=== PATIENT | male | born 1975 | race Hispanic/Latino ===

== ENCOUNTER 2022-05-24 00:55 | Day surgery (SDC) | payer BC, SELFPAY ==
[2022-05-16 09:12] VITALS: BMI 27.4
--- NOTE | 2022-05-16 09:15 | PC.NURSE ---
Report to the Outpatient Waiting Room, entrance under the green pavilion located off [facility], at time 0800 on date 05/24/22. Planned Procedure Time: 1000. Time changes happen often and if your time is changed the preop area will call you the afternoon before. - You and your visitor will be asked to self-screen and do not enter if you have any COVID symptoms. - Only one visitor is requested with a max of two and NO children visitors are allowed at this time. - The patient visitor may be requested to leave or wait in car when not with patient due to distancing restrictions. - A mask is optional within the hospital at this time. Patients may have clear liquids (water, carbonated beverages, clear teas, apple juice) until 3 hours prior to surgery with a maximum of 20 ounces. - No food from midnight until time of surgery Take the following medications with a SIP of water the morning of surgery: N/A DO NOT STOP ANY OF YOUR OTHER PRESCRIPTION MEDICATIONS PRIOR TO SURGERY EXCEPT THE FOLLOWING Medications to discontinue per physician: N/A Date to take last dose: N/A Please no make-up, nail bahamian, hairspray, perfume, deodorant, or body powder the day of surgery. No jewelry (including any body piercings) or valuables the day of surgery, leave them at home. Please take a shower or bath the night before, or the morning of, surgery with an antibacterial soap. Wear comfortable, loose fitting clothing. - Jewelry must be removed prior to entering the operating room. Rings and piercings that are not removed may be cut off. - The hospital will not accept responsibility for valuables. - Please leave all valuables, including medications, at home the day of surgery. If you are going home after surgery, a licensed power screwdriver operator must drive you home. - NO public transportation without another adult if you receive anesthesia. - We recommend that an adult stay with you for 24 hours following discharge. - We also recommend that you do not drive, make important decision, drink alcoholic beverages, or take any drugs that were not prescribed by your health care provider for at least 24 hours after your discharge time. Follow any additional instructions given to you from your surgeon. If you or anyone in your household have experienced Covid symptoms in the past week, please notify your surgeon or the nurse liaison at the phone number below for possible testing. Telephone instructions given to PT - CRISPIN PETERSON and asked if any additional questions and then verbalized understanding. Patient advised to call surgeon office or pre surgery nurse liaison [phone] if any additional questions.
--- NOTE | ~2022-05-24 | XR_ITS ---
XR surgery orthopedic DATE: 05/24/2022 11:00 INDICATION: Removal of left foot osteophyte TECHNIQUE: 2 spot C-arm images of the foot 1. Second total exposure time 0.1259 cGycm2 total DAP COMPARISON: None FINDINGS: Status post arthrodesis at the first tarsometatarsal joint. Bone detail is limited. IMPRESSION: Status post arthrodesis at first tarsometatarsal joint Reviewed, dictated and finalized at Location [facility]. Reviewed, dictated and finalized at location B.
--- NOTE | 2022-05-24 07:10 | WPDHPUPDATE1 ---
History and Physical Update Update Date/Time: 05/24/22 07:10 History and Physical has been reviewed, including an updated exam of the patient. There are NO changes in the patient's condition. Risks, benefits, and alternatives have been discussed and questions answered. Patient agrees to proceed with procedure.
--- NOTE | 2022-05-24 08:24 | P.PNAN_ITS ---
Anes - Initial Pre Proc Eval Procedure: Operation Date: 05/24/22 10:00 Proposed Procedures p Removal of Osteophyte Left Foot - Luis Rosales JR, MD Date/Time: 05/24/22 08:24 Surgeon: Luis Rosales JR, MD Pre Op Diagnosis: Osteophyte Left Foot Patient Data Age: 47 Gender: M Height: 1.63 m Weight: 72.6 kg Allergies Allergy/AdvReac Type Severity Reaction Status Date / Time No Known Allergies Allergy Verified 05/16/22 09:11 Home Medications Medication Instructions Recorded Confirmed Type No Home Medications 01/12/19 05/16/22 History Patient hx anesthesia problems: none Family hx anesthesia problems: none Results Review: All pre-operative results and documents have been reviewed as part of the pre- operative evaluation. PMFSH Past Medical History Medical History (Updated 05/24/22 @ 08:25 by César Fisher MD) Hyperlipidemia Overweight Surgical History Surgical History (Updated 05/24/22 @ 08:25 by César Fisher MD) History of foot surgery Social History Social History Smoking status: Never smoker Alcohol intake: current Drinks per week: 6 Substance use: never Substance use type: does not use Living arrangements: with family Spiritual care concerns: No Anes - Eval Final PreProcedure Day of Procedure 05/24/22 08:24 Patient weight: overweight Heart: regular rate and rhythm Lungs: clear to auscultation Airway: Mallampati scale class 1 Neurological: alert and oriented Last oral intake: >/= 8 hours ASA classification: II Emergent: no Anesthetic plan: proceed Anesthesia type and monitoring: general GIVS and standard monitoring Results Review: All pre-operative results and documents have been reviewed as part of the pre- operative evaluation. Informed Consent: The patient's anesthetic plan and its attendant risks and benefits were discussed with the patient/family/POA. Questions were solicited and answers provided to the satisfaction of the patient/family/POA.
[2022-05-24] MEDS: LACTATED RINGERS 1,000 ML 30 ML IV CONT (09:00)
[2022-05-24] MEDS: ceFAZolin 2 GM/D5W 50 ML 2 GM/50 ML BAG IVPB (10:13)
[2022-05-24 10:18] VITALS: BP 125/84; PULSE 69; RESP 14; O2SAT 100
[2022-05-24] MEDS: LIDOCAINE HCL 2% PF INJ 5 ML VIAL 20 ML INFILTRATE (10:42)
--- NOTE | 2022-05-24 11:03 | W.PM.PROC2 ---
Procedure Note - Detailed Date of Procedure 05/24/22 Pre-op Diagnosis Osteophyte Left Foot Post-op Diagnosis Other (1. Osteophyte left foot 2. Ganglion cyst left foot) Procedure Performed 1. Removal of osteophyte left foot 2. Excision of ganglion cyst left foot Surgeon Luis Rosales JR, DPM Anesthesia MAC and Local Indications Painful left foot dorsal midfoot Findings 1. Ganglion cyst along the dorsal midfoot superficial to the extensory hallucis longus tendon. 2. Large Osteophyte along the dorsal lateral aspect of the arthrodesis site to the first metatarsal cuneiform joint. Description of Procedure Under mild sedation, the patient was brought to the operating room, placed on the operating table in the supine position. A pneumatic ankle tourniquet was placed about the patient's left ankle. Following IV sedation, I administered an ankle ring block left with 20ccs of 2% Lidocaine plain and 0.5% Marcaine plain. The foot was then scrubbed, prepped, and draped in the usual aseptic manner. An Esmarch bandage was then used to examine the patient's left foot and pneumatic ankle tourniquet was then inflated. Surgery began in the following manner. Attention was directed to the dorsal aspect of the 1st metatarsocuneiform to the left foot where fluoroscopy was used to identify the joint. A 3 cm incision was made overlying the dorsal aspect of the 1st metatarsocuneiform joint of the left foot just dorsal to the extensor hallucis longus tendon. The incision was then continued deep down through the subcutaneous tissues using sharp and blunt dissections. All bleeders were ligated and cauterized as necessary. At this point, the extensor tendon was identified and reflected laterally, there was a thick walled ganglion cyst overlying the tendon this was excised in entirety. Next, the periosteum and capsular incision was made at the full length of the skin incision exposing the dorsal lateral aspect of the first metatarsal medial cuneiform as well as the base of the 1st metatarsal. Care was taken to retact the neurovascular bundle laterally. Next, an osteotome was used to resect the large promiment osteophyte. I used a none rasp to smooth any rough edges. I flushed the area with copious amounts of sterile saline. Next, the capusule was reaproximated with 4-0 Vicryl. Next, the subcutaneous structures were reapproximated and coapted utilizing 4-0 Vicryl. Next, the skin was reapproximated and coapted utilizing 4-0 Monocryl in running subcuticular suture fashion technique. Upon completion of the procedure, the incision was dressed with Steri-Strips, Adaptic, 4 x 4's, Kerlix, and Coban. The pneumatic ankle tourniquet was then deflated and a prompt hyperemic response noted to all digits of the left foot. The patient did very well with the procedure and the anesthesia. The patient was transferred to the recovery room with vital signs stable and vascular status intact to all toes of the left foot. Following a period of postoperative monitoring, the patient will be discharged home on the following written and oral postoperative instructions: 1. Keep the dressing clean, dry, and intact. Use a cast protector bag with showers. 2. The patient to be protected weight bearing with a CAM boot. 3. The patient should ice and elevate the left foot when at rest. 4. The patient to contact Dr. Rosales for all postop care and if any problems arise. 5. Prescriptions were written for Percocet 5/325 dispensed 40 to be taken 1 p.o. q.4 to 6 hours as needed for severe pain. Estimated Blood Loss 1 Drains No Packing No Pathology None sent Complications No immediate complications Condition Stable Disposition Same day
[2022-05-24 11:10] VITALS: BP 119/88; PULSE 77; RESP 14; O2SAT 100
[2022-05-24] MEDS: ONDANSETRON INJ 4 MG/2 ML VIAL IV PUSH (11:21)
[2022-05-24 11:40] VITALS: BP 119/79; PULSE 57; RESP 16; O2SAT 99
[2022-05-24 12:10] VITALS: BP 140/89; PULSE 55; RESP 16; O2SAT 100
[2022-05-24 12:40] VITALS: BP 122/84; PULSE 50; RESP 17
== END 2022-05-24 13:00 | disposition home or self-care (01) ==
PROVIDERS: PCP Internal Medicine; Visit Provider Podiatrist Foot & Ankle Surgery
PROC: (CPT 28090; principal; 2022-05-24 10:00)
DX: M25.775 Osteophyte, left foot (principal); M67.472 Ganglion, left ankle and foot
CPT/HCPCS: 28090; 28104; 99199; J0690; J1100; J2250; J2405; J2704; J3010; J7120

== ENCOUNTER 2022-08-05 12:55 | Observation (INO) | payer BC, SELFPAY ==
[2022-08-05] VITALS (35 sets, daily range): BP systolic 104–156; BP diastolic 71–108; PULSE 56–82; RESP 12–21; TEMP 36.1–36.7; O2SAT 83–100; BMI 28.3
--- NOTE | ~2022-08-05 | US_ITS ---
EXAMINATION: US carotid duplex BI DATE: 08/05/2022 23:32 INDICATION: Syncope. TECHNIQUE: Grayscale, color Doppler, and pulsed Doppler images of the cervical carotid arteries were obtained. The degree of vessel stenosis is placed in one of the following categories: normal, <50%, 5 0-69%, >=70% but less than near-occlusion, near-occlusion, or total occlusion. Note that percent sten osis relative to normal distal artery lumen diameter is indirectly measured from velocity measurement s as described by Dami, et al. Radiology 2003; 229:340-346. COMPARISON: None. FINDINGS: RIGHT: The right common carotid artery (CCA) peak systolic velocity (PSV) is 86 cm/s. The right internal car otid artery (ICA) PSV is 72 cm/s. The right ICA end-diastolic velocity (EDV) is 27 cm/s. The right IC A/CCA PSV ratio is 0.8. Grayscale and color Doppler images yield an estimate of <50% diameter reducti on from plaque in the ICA. There is antegrade flow in the right vertebral artery. LEFT: The left CCA PSV is 79 cm/s. The left ICA PSV is 69 cm/s. The left ICA EDV is 20 cm/s. The left ICA/C CA PSV ratio is 0.9. Grayscale and color Doppler images yield an estimate of <50% diameter reduction from plaque in the ICA. There is antegrade flow in the left vertebral artery. IMPRESSION: 1. <50% stenosis in the right internal carotid artery. 2. <50% stenosis in the left internal carotid artery. Reviewed, dictated and finalized at location A.
--- NOTE | ~2022-08-05 | XR_ITS ---
EXAMINATION: XR chest 2V 08/05/2022 13:24 INDICATION: Irregular heart rate PROCEDURE: 2 view chest COMPARISON: No prior studies for comparison. FINDINGS: The lungs are clear. The cardiomediastinal silhouette is within normal limits. There are no pleural effusions. There is no pneumothorax suspected. IMPRESSION: 1: NO ACUTE CARDIOPULMONARY DISEASE. Reviewed, dictated and finalized at location []
--- NOTE | 2022-08-05 12:57 | ECG_ITS ---
Measurements Intervals [place] Rate: 72 P: 50 MO: 155 QRS: 49 QRSD: 81 T: 29 QT: 354 QTc: 387 Interpretive Statements SINUS RHYTHM NORMAL ECG NO PREVIOUS ECG AVAILABLE FOR COMPARISON Electronically Signed On 08-05-2022 17:15:00 CDT by Sonny Ricks M.D.
[2022-08-05 13:18] LABS: Basophils Percent Auto 0.6 % (0.2-1.2); Eosinophils Absolute Auto 0.2 K/mm3 (0-0.3); Eosinophils Percent Auto 3.7 % (0-4.4); Hematocrit 42.3 % (42.0-52.0); Hemoglobin 14.6 g/dL (14.0-18.0); Immature Granulocyte Absolute 0.02 K/mm3 (0.00-0.031); Immature Granulocyte Percent A 0.3 % (0-0.5); Lymphocytes Percent Auto 28.8 % (18.3-44.2); Mean Corpuscular HGB Conc 34.5 g/dl (32-36); Mean Corpuscular Hemoglobin 30.3 pg (26-34); Mean Corpuscular Volume 87.8 fl (80-100); Mean Platelet Volume 8.7 fl (7.4-10.4); Monocytes Absolute Auto 0.6 K/mm3 (0.1-0.6); Monocytes Percent Auto 9.1 % (2.6-8.5); Neutrophils Absolute Auto 3.6 K/mm3 (1.3-6.7); Neutrophils Percent Auto 57.5 % (45.5-73.1); Platelet Count Result 274 k/mm3 (150-375); Red Blood Count 4.82 M/mm3 (4.6-6.20); Red Cell Distribution Width 13.4 % (11.5-14.5); White Blood Count 6.3 K/mm3 (4.5-10.0)
[2022-08-05 13:38] LABS: Partial Thromboplastin Time 29.8 SECONDS (22.3-36.8); Prothrombin Time 13.5 Seconds (11.1-14.7)
[2022-08-05 14:24] LABS: Alanine Aminotransferase 28 U/L (6-50); Albumin Level 4.5 g/dL (3.5-5.1); Alkaline Phosphatase 61 U/L (38-126); Anion Gap 4 mmol/L (8-16); Aspartate Amino Transferase 26 U/L (17-59); Bilirubin,Total 0.5 mg/dL (0.2-1.3); Blood Urea Nitrogen 14 mg/dL (9-20); Calcium 8.8 mg/dL (8.4-10.2); Carbon Dioxide 30 mmol/L (22-30); Chloride 102 mmol/L (98-107); Estimated CRCL calculation 90 ml/min; Estimated Glomerular Filt Rate > 60; Glucose 88 mg/dL (65-110); Lipase 93 U/L (23-300); Potassium 4.1 mmol/L (3.4-5.0); Sodium 136 mmol/L (137-145)
[2022-08-05 14:35] LABS: Troponin I < 0.012 ng/mL (0.000-0.034)
--- NOTE | 2022-08-05 15:25 | ED.CHESTPAIN ---
HPI - Chest Pain General Chief Complaint: Arrhythmia/Palpitations Stated Complaint: heart palp Time Seen by Provider: 08/05/22 13:05 Source: patient and family Mode of arrival: ambulatory Limitations: language barrier History of Present Illness HPI narrative: 47-year-old with a history of hypercholesterolemia here with complaints of left-sided chest pain on and off since the last 3 days. Patient states that he was driving a few days ago in [facility] had chest pain was seen in local ER was told that he may have GERD he was discharged home again this morning while he was driving to work started having left-sided chest pain. Patient states that whenever he gets pain he feels fullness in his ears associated with facial flushing. He denied any shortness of breath, nausea or diaphoresis. However he states that he felt extremely lightheaded and dizzy. complaint: chest pain Onset (ago): day(s) (3) Timing of current episode: episodic Pain location: left chest Pain radiation: neck Quality: tightness and heaviness Relieving factors: nothing Exacerbating factors: nothing Associated symptoms: other (dizziness ) Treatment prior to arrival: none Risk Factors Coronary artery disease risk factors: hyperlipidemia Related Data Home Medications Medication Instructions Recorded Confirmed No Home Medications 01/12/19 05/16/22 Allergies Allergy/AdvReac Type Severity Reaction Status Date / Time No Known Allergies Allergy Verified 05/24/22 10:23 Review of Systems Review of Systems: All systems reviewed & are unremarkable except as noted in HPI and below Constitutional: Constitutional: Reports no additional constitutional complaints Eyes: Eyes: Reports no additional eye complaints ENT: Reports as per HPI Cardiovascular: Cardiovascular: Reports no additional cardiovascular complaints Respiratory: Respiratory: Reports no additional respiratory complaints Gastrointestinal: Gastrointestinal: Reports no additional gastrointestinal complaints Musculoskeletal: Musculoskeletal: Reports no additional musculoskeletal complaints Neurologic: Reports system reviewed and no additional complaints, except as documented PMFSH Past Medical History Medical History (Updated 08/05/22 @ 15:33 by Tomas Woodson MD) Hyperlipidemia Overweight Surgical History Surgical History (Updated 05/24/22 @ 08:25 by César Fisher MD) History of foot surgery Social History Social History Smoking status: Never smoker Alcohol intake: current Drinks per week: 6 Substance use: never Substance use type: does not use Living arrangements: with family Spiritual care concerns: No Exam Narrative: GENERAL: Well-appearing, well-nourished, and in no acute distress. HEAD: Normocephalic, atraumatic. EYES: PERRLA and EOMI. ENT: Nares clear, no rhinorrhea or epistaxis. Mucous membranes moist both TMs are clear. NECK: Supple. CHEST: Clear to auscultation. No respiratory distress. HEART: Regular rate and rhythm. No murmur heard. Normal peripheral pulses. ABDOMEN: Soft, nontender, nondistended, normal active bowel sounds. EXTREMITIES: Normal range of motion. No edema. SKIN: Warm, dry, no rash. NEURO: No focal deficits. Alert and oriented x3. PSYCH: Normal mood and affect. Course Course Emergency Course: Patient remained asymptomatic here in the ER. Informed him and his about the lab work, EKG findings she is agreeable for admission. Discussed with Mily and cardiology. Vital Signs Vital signs: Vital Signs Temperature 36.7 C 08/05/22 12:58 Pulse Rate 77 08/05/22 12:58 Respiratory Rate 12 08/05/22 12:58 Blood Pressure 139/108 H 08/05/22 12:58 Pulse Oximetry 100 08/05/22 12:58 Oxygen Delivery Room Air 08/05/22 12:58 Temperature 36.7 C 08/05/22 12:58 Pulse Rate 77 08/05/22 12:58 Respiratory Rate 08/05/22 12:58 Blood Press
[2022-08-05] MEDS: ENOXAPARIN 80 MG/0.8 ML SYRINGE 75 MG SUB-Q (15:45)
[2022-08-05 16:47] LABS: Troponin I < 0.012 ng/mL (0.000-0.034)
--- NOTE | 2022-08-05 17:50 | PM.IMHP ---
H&P: HPI History of Present Illness Date/Time: 08/05/22 17:30 Chief Complaint: Chest pain. Narrative: This is a pleasant 47-year-old male with hyperlipidemia who presented to the emergency department via private vehicle from home for evaluation of chest pain. The patient provides the following history. Last weekend he and his family members were going out of town and approximately [address] trip he suddenly began to feel lightheaded as though he may pass out with feelings of warmth, flushed face, ear pressure, and pressure-like discomfort in the left anterior chest which radiated up the posterior neck and down the left arm. He also felt a bit short of breath and nauseated with that episode.. He was seen in the ED at [facility] in [place] and he was told that he probably had GERD though he has never really had symptoms of indigestion or the like. Since that time he has had several other episodes and today he was driving to work when the symptoms recurred. He is worried that he may pass out while driving in hurt somebody thus he came in for evaluation. He has high cholesterol but he has never been started on medication for that. He has no known history of hypertension, cardiac disease, or cardiac dysrhythmia. Many years ago he wore a Holter monitor for a brief period of time or palpitations which he does still have on rare occasions. He denies fever, cold and flu symptoms, exertional chest pain, pleuritic pain, current shortness breath, orthopnea, paroxysmal nocturnal dyspnea, edema, calf pain, epigastric and abdominal pain, bloating, belching, and vomiting. He does not consume caffeine or alcohol in significant quantities. He has not had any recent change in stress. No history of anxiety nor dizzy have feelings of being anxious. Vital signs were stable on arrival to the ED. CMP and CBC were really unremarkable. Initial troponin was negative. EKG showed sinus rhythm without ST depressions or elevations. Chest x-ray showed no acute cardiopulmonary disease. Given recurrent symptoms of chest discomfort and near-syncope he is being admitted overnight for close monitoring and Cardiology consultation. Review of Systems Review of Systems: Twelve systems were reviewed and are negative except for as per HPI. [facility] Past Medical History Medical History (Updated 08/05/22 @ 21:36 by Lucia Carney PA-C) Hyperlipidemia Surgical History Surgical History (Updated 08/05/22 @ 21:34 by Lucia Carney PA-C) History of orthopedic surgery Left hand and foot surgery. Family History Family History (Updated 08/05/22 @ 21:32 by Lucia Carney PA-C) Father Diabetes mellitus Dementia Social History Social History (Updated 08/05/22 @ 21:35 by Lucia Carney PA-C) Social History: Surrogate medical decision maker: Portia Downing, spouse. Code status: Full code. Smoking status: Never smoker Alcohol intake: current Drinks per week: 4 Alcohol use details: 4 to 5 beers a week if that. 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 Spiritual care concerns: No Meds Home Medications and Allergies Home Medications Medication Instructions Recorded Confirmed Type No Home Medications 01/12/19 08/05/22 History Allergies Allergy/AdvReac Type Severity Reaction Status Date / Time No Known Allergies Allergy Verified 05/24/22 10:23 Vital Signs Vital Signs - 24 hr 08/05/22 12:58 08/05/22 13:10 08/05/22 13:13 Temperature 98.0 F Pulse Rate 77 72 64 Respiratory Rate 12 19 14
--- NOTE | 2022-08-05 18:12 | ADMIMU ---
This patient, Jalil Downing, was admitted to IMU status, and placed in IMU Room 211-01. Patient/family oriented to hospital policies and general routines including ID bracelet, bed and alarms, visiting hours, pain management, procedures, bathroom and other care routines, personal items, smoking policy, room service/diet, and visiting hours. Valuables list has been completed. Information on how to activate the Rapid Response Team has been discussed. Patient/Family are encouraged to report perceived risks to care and to ask questions if they do not understand what they are told or what they should do.
[2022-08-05] MEDS: NITROGLYCERIN OINTMENT 1 INCH DOSE TRANSDERM ×2 (18:25→23:04)
[2022-08-05 19:13] LABS: Troponin I < 0.012 ng/mL (0.000-0.034)
[2022-08-06] VITALS (9 sets, daily range): BP systolic 110–125; BP diastolic 65–77; PULSE 55–85; RESP 18–20; TEMP 36.5–36.8; O2SAT 94–100
[2022-08-06] MEDS: ACETAMINOPHEN 325 MG TABLET 650 MG PO (04:05)
[2022-08-06 05:19] LABS: Cholesterol 277 mg/dL (0-200); HDL Direct 44 mg/dL; Triglycerides 221 mg/dL (<150)
[2022-08-06 05:30] LABS: LDL Cholesterol Direct 190 mg/dL
[2022-08-06] MEDS: ASPIRIN 81 MG CHEWABLE TABLET PO (08:56)
--- NOTE | 2022-08-06 09:57 | PM.CNCAR ---
Assessment and Plan Assessment and plan (1) Chest pain: Qualifiers: Chest pain type: other chest pain Qualified Code(s): R07.89 - Other chest pain Code(s): R07.9 - Chest pain, unspecified Status: Acute Assessment and Plan: Chest pain atypical and only occurs preceded by rapid palpitations, lightheadedness, shortness of breath most likely secondary to undiagnosed SVT. He has no history of exertional chest pain, exertional dyspnea or declining activity tolerance to suggest myocardial ischemia. His ECG is normal without ischemic changes and he has ruled out for myocardial infarction with negative serial cardiac enzymes. At this time, we will pursue evaluation for tachyarrhythmias explanation for symptoms and for go ischemic evaluation as above. We discussed at length patient his who verbalized understanding and agreed with plan of care. Further recommendation to follow. Should he note exertional symptoms or declining activity tolerance notify the office immediately for further recommendations. No further ischemic workup indicated at this time during this episode of care unless he has recurrent symptoms without identifiable explanation. I spent 65 minutes in the care of this patient including examination at bedside. Discussion with the patient and his , discussions with nursing staff, chart review, medical decision-making, and documentation. (2) Near syncope: Code(s): R55 - Syncope and collapse Status: Acute Assessment and Plan: Patient has had multiple recurrent near syncopal events which are always preceded by a rapid palpitations and with the same set of symptoms such as shortness of breath, lightheadedness, chest discomfort which began at rest. There is no aggravating or relieving factors thus far and occur randomly. While this is not new this is increased in frequency of late for unclear reasons. No clearly identifiable secondary reversible treatable causes noted with normal lactic lytes, renal function thyroid function. Near syncope most likely secondary to undiagnosed SVT as noted above for which a 30 day nurse monitoring will be ordered upon discharge. If explanation is not yet found we discussed loop recorder implantation for further evaluation over longer period time. Echocardiogram personally reviewed no identifiable explanation, LVOT obstruction. Heart is otherwise structurally normal without significant valvular heart disease (3) Palpitations: Code(s): R00.2 - Palpitations Status: Acute Assessment and Plan: As above, most likely secondary to SVT although precise etiology not yet documented. Thirty day nurse monitoring. Counseled and educated patient on Valsalva maneuvers for termination of the arrhythmia. Counseled him monitor and be cautious for lightheadedness, dizziness and did attempt this sitting or lying and not while driving. Explained how this may potentially facilitate termination of his arrhythmia if utilizing the AV node. Patient will follow-up with me in 1 month upon discharge. We discussed metoprolol tartrate 25 mg to be used as needed for sustained rapid palpitations as counseled. He will not begin this medication to take on a routine basis unless otherwise advised. All questions answered to their satisfaction. If a specific SVT or tachyarrhythmias identified we discussed management options at length including observation, medications, and or referral to electrophysiology for EP study and ablation for cure of arrhythmia. We discussed relative risks benefits in this approach. Recommendation to follow after review of his nurse monitoring and his clinical status. (4) Hyperlipidemia: Qualifiers: Hyperlipidemia type: mixed hyperlipidemia Qualified Code(s): E78.2 - Mixed hyperlipidemia Code(s): E78.5 - Hyperlipidemia, unspecified Status: Acute Assessment and Plan: Continue atorvastatin 20 mg at bedtime. Redu
--- NOTE | 2022-08-06 10:46 | PM.IMPN ---
Progress Note: A&P Assessment and Plan (1) Chest pain: Qualifiers: Chest pain type: unspecified Qualified Code(s): R07.9 - Chest pain, unspecified Code(s): R07.9 - Chest pain, unspecified Status: Acute Assessment and Plan: Currently asymptomatic. Cardiology consulted. Continue aspirin. EKG unremarkable (2) Hyperlipidemia: Code(s): E78.5 - Hyperlipidemia, unspecified Status: Acute Assessment and Plan: Continue statin Subjective Date/time seen: 08/06/22 10:46 Interval history: No chest pain at present Review of Systems Review of Systems: Review of system negative other than HPI Exam Narrative: General: Well-developed male sitting up in bed in no distress. Weight: 72.5 kg. BMI: 28.3. HEENT: PERRL, EOMI. Sclera anicteric. Oral mucosa moist. Oropharynx clear. Neck: Supple. No JVD. Respiratory: Lungs are clear to auscultation bilaterally. Cardiovascular: Regular rate and rhythm with S1-S2. Chest: No tenderness to palpation over the chest wall. Gastrointestinal: Abdomen is soft, nontender, and nondistended with positive bowel sounds. Skin: Warm and dry. No rash or lesions on limited exam. Extremities: No cyanosis, clubbing, or edema. Radial and pedal pulses intact. No knots or cords. Negative Bal sign bilaterally. Neurological: Alert. Cranial nerves 2-12 are grossly intact. No gross focal deficits to casual conversation. Psychiatric: Pleasant and cooperative with appropriate mood and affect. Objective Data Vital Signs Vital Signs: Vital Signs - 24 hr 08/05/22 12:58 08/05/22 13:10 08/05/22 13:13 Temperature 98.0 F Pulse Rate 77 72 64 Respiratory Rate 12 19 14 Blood Pressure 139/108 H 146/94 H Pulse Oximetry 100 97 Oxygen Delivery Room Air 08/05/22 13:16 08/05/22 13:41 08/05/22 13:45 Temperature Pulse Rate 65 62 61 Respiratory Rate 18 21 H 14 Blood Pressure 125/84 Pulse Oximetry 95 95 94 Oxygen Delivery 08/05/22 13:47 08/05/22 14:00 08/05/22 14:15 Temperature Pulse Rate 61 62 64 Respiratory Rate 16 13 14 Blood Pressure 122/80 Pulse Oximetry 95 96 99 Oxygen Delivery 08/05/22 14:16 08/05/22 14:37 08/05/22 14:45 Temperature Pulse Rate 60 64 63 Respiratory Rate 14 20 19 Blood Pressure 125/82 Pulse Oximetry 94 98 99 Oxygen Delivery 08/05/22 14:46 08/05/22 15:09 08/05/22 15:17 Temperature Pulse Rate 60 70 69 Respiratory Rate 19 18 17 Blood Pressure 121/83 126/80 Pulse Oximetry 98 97 97 Oxygen Delivery 08/05/22 15:18 08/05/22 15:30 08/05/22 15:45 Temperature Pulse Rate 68 59 L 65 Respiratory Rate 14 16 Blood Pressure Pulse Oximetry 98 100 98 Oxygen Delivery 08/05/22 15:46 08/05/22 15:47 08/05/22 16:08 Temperature Pulse Rate 68 71 56 L Respiratory Rate Blood Pressure 137/86 Pulse Oximetry 83 L 100 98 Oxygen Delivery 08/05/22 16:34 08/05/22 16:45 08/05/22 16:46 Temperature Pulse Rate 63 57 L 58 L Respiratory Rate Blood Pressure 124/71 Pulse Oximetry 97 97 96 Oxygen Delivery 08/05/22 17:13 08/05/22 17:15 08/05/22 17:30 Temperature Pulse Rate 63 63 66 Respiratory Rate Blood Pressure Pulse Oximetry 97 97 100 Oxygen Delivery 08/05/22 17:31 08/05/22 17:33 08/05/22 17:56 Temperature Pulse Rate 71 74 82 Respiratory Rate 16 Blood Pressure 139/100 H 139/100 H Pulse Oximetry 98 97 Oxygen Delivery 08/05/22 18:16 08/05/22 18:00 08/05/22 20:00 Temperature 97.0 F L 97.3 F L Pulse Rate 64 70 73 Respiratory Rate 18 20 Blood Pressure 156/81 H 131/72 Pulse Oximetry 99 96 Oxygen Delivery 08/05/22 20:00 08/05/22 20:00 08/05/22 21:47 Temperature Pulse Rate 79 78 76 Respiratory Rate 20 Blood Pressure Pulse Oximetry 96 Oxygen Delivery Room Air 08/05/22 23:12 08/06/22 00:00 08/06/22 00:00 Temperature 97.2 F L Pulse Rate 73 69 69 Respiratory Rate 18 18 B
[2022-08-06] MEDS: ATORVASTATIN 20 MG TABLET PO (12:42)
--- NOTE | 2022-08-06 17:08 | PM.DS ---
DS: Admitting Diagnosis Discharge Date 08/06/22 Admitting Diagnosis chest pain DS: Discharge Diagnosis Discharge Diagnosis (1) Palpitations: Code(s): R00.2 - Palpitations Status: Acute Assessment and Plan: Metoprolol as needed for palpitations. event monitor per cardiology. f/u with cardiology in 1 month. (2) Hyperlipidemia: Qualifiers: Hyperlipidemia type: mixed hyperlipidemia Qualified Code(s): E78.2 - Mixed hyperlipidemia Code(s): E78.5 - Hyperlipidemia, unspecified Status: Acute Assessment and Plan: Continue statin (3) Chest pain: Qualifiers: Chest pain type: other chest pain Qualified Code(s): R07.89 - Other chest pain Code(s): R07.9 - Chest pain, unspecified Status: Acute Assessment and Plan: Currently asymptomatic. Cardiology consulted. Continue aspirin. EKG unremarkable. no further investigation at this time. DS: Summary Hospital Course Hospital Course: as above. stable. being discharged home Time Spent with Patient Time attestation: Total time spent providing and/or coordinating discharge services: DS: Data Data Completed and Pending Labs on day of discharge: Labs from last 24 hours 08/06/22 08/05/22 04:35 18:40 Troponin I < 0.012 Triglycerides 221 H Cholesterol 277 H LDL Cholesterol Direct 190 HDL Direct 44 TSH (Reflex) 2.680 Discharge Plan Discharge Consulting providers: Cesar Mcleod Discharging Clinician: Bryan Hale Anticipated Discharge Date/Time: 08/06/22 17:07 Patient Disposition: Home, Self-Care Activity: no preference Diet: heart healthy Patient Instructions: Antibiotic Form, Chest Pain (DC) Stand Alone Forms: General Discharge Information Follow-up/Referrals: Cesar Mcleod MD [Physician] - Refugio Ibanez DO [Primary Care Provider] - Discharge Medications: New metoprolol tartrate 25 mg tablet 25 mg PO DAILY PRN (Reason: rapid palpitations ) Qty: 30 0RF atorvastatin 20 mg Tablet 20 mg PO DAILY Qty: 30 0RF No Action No Home Medications Other Ambulatory Orders: CA cardiac event monitor (Routine) Timeframe: 1 Month Location: [facility] [place] Cardiology Ordered By: Nevaeh Luciano Date of admission: 08/05/22 15:35 Primary Care Provider: Refugio Ibanez Admitting Provider: Ulices Perales Attending physician on admission: Bryan Hale Condition: Stable
--- NOTE | 2022-08-06 21:38 | ECHO_ITS ---
Patient Info Name: Jalil Downing Age: 47 years : 1975 Gender: Male Ht: 63 in Wt: 160 lbs BSA: 1.82 m2 HR: 58 bpm BP: 110 / 65 mmHg Heart Rhythm: Sinus Rhythm Technical Quality: Fair Exam Date: 08/06/2022 11:53 AM Exam Location: [facility] Patient Status: Inpatient Admit Date: 08/05/2022 Staff Ordering Physician: Lucia Carney PA-C [employer]techn[employer] Teacher: Beverley Marion RDCS Attending Provider: Bryan Hale MD Referring Physician: Rommel ORELLANA; Exam Type: CA echo doppler color flow Study Info Indications - chest pain Complete two-dimensional, color flow and Doppler transthoracic echocardiogram is performed. Summary 1. Complete two-dimensional, color flow and Doppler transthoracic echocardiogram is performed. 2. Left ventricular chamber dimension is normal. 3. Left ventricular systolic function is normal, estimated at 60-65%. 4. There is mildly increased left ventricular wall thickness. 5. The left ventricular diastolic function is normal. 6. There is no aortic valve stenosis. 7. There is trace mitral valve regurgitation. 8. There is trace tricuspid valve regurgitation. 9. No pulmonary hypertension, estimated pulmonary arterial systolic pressure is 18 mmHg. Left Ventricle Left ventricular chamber dimension is normal. Left ventricular systolic function is normal, estimated at 60-65%. There is mildly increased left ventricular wall thickness. The left ventricular diastolic function is normal. Right Ventricle Right ventricular chamber dimension is normal. Right ventricular systolic function is normal. Left Atria Left atrial chamber dimension is normal. Right Atria Right atrial chamber dimension is mildly enlarged. Aortic Valve The aortic valve is not well visualized. There is no aortic valve stenosis. There is no aortic valve regurgitation. Pulmonic Valve The pulmonic valve is not well visualized. There is trace pulmonic regurgitation. Mitral Valve The mitral valve has normal leaflets. There is trace mitral valve regurgitation. Tricuspid Valve The tricuspid valve leaflets are normal. There is trace tricuspid valve regurgitation. No pulmonary hypertension, estimated pulmonary arterial systolic pressure is 18 mmHg. Pericardium/Pleural The pericardium appears normal. There is no pericardial effusion. Inferior Vena Cava Normal inferior vena cava with >50% collapse upon inspiration consistent with normal right atrial pressure, 5 mmHg. Aorta The aortic root size at the sinus of Valsalva is normal. Left Ventricular Outflow Tract Name Value Normal LVOT 2D LVOT Diameter 2.1 cm LVOT Doppler LVOT Peak Gradient 2 mmHg LVOT Mean Gradient 1 mmHg LVOT VTI 15 cm LVOT VTI/AV VTI Ratio 0.8 LVOT Stroke Volume 56 ml LVOT CO 3.2 l/min LVOT CI 1.7 l/min/m2 Pulmonic Valve Name Value Normal
== END 2022-08-06 17:30 | disposition home or self-care (01) ==
LOC: ANHED 15:33 → ANHIMU 16:25
PROVIDERS: Emergency Medicine; Physician Assistant; Admitting Provider Internal Medicine; Emergency Provider Family Medicine; PCP Internal Medicine; Visit Provider Hospitalist
DX: R00.2 Palpitations (principal); E78.2 Mixed hyperlipidemia; R07.89 Other chest pain; R55 Syncope and collapse; H93.8X9 Other specified disorders of ear, unspecified ear; E66.3 Overweight; Z68.28 Body mass index [BMI] 28.0-28.9, adult; F10.90 Alcohol use, unspecified, uncomplicated
CPT/HCPCS: 36415; 71046; 80053; 80061; 83690; 84443; 84484; 85025; 85610; 85730; 93005; 93306; 93880; 96372; 99285; A9270; G0378; J1650

== ENCOUNTER 2024-02-09 08:37 | Emergency (ER) | payer BC, SELFPAY ==
--- NOTE | 2024-02-09 08:40 | ED.URI ---
HPI - URI/Sore Throat General Chief Complaint: Upper Respiratory Infection Stated Complaint: Head Pain/Dizziness/Ears Irritation Time Seen by Provider: 02/09/24 08:39 Source: patient Mode of arrival: ambulatory Limitations: no limitations History of Present Illness HPI Narrative: Patient is a 48-year-old male who presents with left ear pressure, ringing in both ears, sinus congestion for 2 weeks. Patient denies any sore throat, fever, chills, nausea, vomiting, diarrhea. Does have any ENT and was told to take Flonase and Claritin. Patient took for some time but has not taken any recently. Related Data Allergies Allergy/AdvReac Type Severity Reaction Status Date / Time No Known Allergies Allergy Verified 02/09/24 08:39 Review of Systems Review of Systems: All systems reviewed & are unremarkable except as noted in HPI and below Constitutional: Constitutional: Denies body ache(s), Denies chills, Denies fatigue, Denies fever(s), Denies headache(s), Denies malaise and Denies weakness Eyes: Eyes: Denies blurry vision, Denies itchy eyes and Denies loss of vision ENT: Reports otalgia, Denies headache(s), Reports nasal congestion, Reports tinnitus, Denies sinus pain, Reports sinus pressure and Denies sore throat Cardiovascular: Cardiovascular: Denies chest pain, Denies irregular heart rhythm and Denies dyspnea Respiratory: Respiratory: Denies cough and Denies dyspnea Gastrointestinal: Gastrointestinal: Denies abdominal pain, Denies diarrhea, Denies nausea and Denies vomiting Musculoskeletal: Musculoskeletal: Denies back pain, Denies myalgias and Denies arthralgias Integumentary/Breasts: Skin/Breast: Denies pruritus and Denies rash Neurologic: Denies headache(s), Denies loss of vision and Denies weakness Psychiatric: Psychiatric: Reports no additional psychiatric complaints Endocrine: Endocrine: Denies fatigue Allergic/Immunologic: Allergic/Immunologic: Denies itchy eyes PMFSH Past Medical History Medical History Hyperlipidemia Surgical History Surgical History History of orthopedic surgery Left hand and foot surgery. Family History Family History Father Diabetes mellitus Dementia Social History Social History Social History: Surrogate medical decision maker: Portia Downing, spouse. Code status: Full code. Smoking status: Never smoker Alcohol intake: current Drinks per week: 4 Alcohol use details: 4 to 5 beers a week if that. 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 Spiritual care concerns: No Comments At time of signature, agree with nursing past medical, surgical, social and family history. There is no relevant family history pertinent to the presenting complaint. Exam Const: General: cooperative, healthy appearing, comfortable, no acute distress and well nourished Nutritional Appearance: well nourished Orientation/consciousness: patient oriented x3 Limitations: no limitations HENMT: Head: normal to inspection, normocephalic and atraumatic Ears: hearing grossly normal bilaterally, external ears normal, TM's normal bilaterally, EAC's normal and no periauricular adenopathy Face/Nose/Sinus: Normal external nose present, Abnormal mucous membranes and turbinates present erythematous bilateral and diffuse, normal facial exam, face symmetric and Facial tenderness on exam of face and sinuses Face and sinus: normal facial exam and face symmetric Mouth: Yes Normal oral and palatal mucosa present, Yes lip normal, Yes tongue normal, Yes Normal salivary glands and ducts present, Yes oropharynx normal and Yes moist mucous membranes Teeth and gingiva: dentition normal Throat: posterior oropharynx normal, tonsils normal and uvula midline Eyes: General: appearance normal, both eyes and all related structures Alignment and Position: alignment normal and position normal Periorbital: periorbital findings normal Eyelids: eyelids normal Pupils: Equal, round and reactive pupils present Neck: Neck: normal visual inspection, full ROM, no lymphadenopathy and supple Chest: Chest palpation & inspection: normal inspection of the chest and normal palpation of entire chest wall Resp: Effort & Inspection: normal respiratory effort and able to speak in complete sentences Auscultation: clear to auscultation bilaterally, no crackles, no rales, no rhonchi and no wheezes Cardio: Rate: regular rate Rhythm: regular rhythm Heart sounds: S1 normal heart sound present and S2 normal heart sound present GI: Inspection: normal to inspection Skin: General skin exam: normal color and no rashes or lesions noted Neuro: General: patient oriented x3 and moves all extremities Cranial nerves: Yes Equal, round and reactive pupils present Speech: normal speech Gait exam (Neuro): Normal gait present Extrem: General: normal to inspection, full ROM and no edema Psych: Appearance: grossly normal and well kempt Mental Status: mental status grossly normal Speech and movement: Normal speech and movement present Affect: normal affect Attitude: cooperative Thought process: Normal thought process present Course Course Emergency Course: Patient is aware of diagnosis, understands and agrees to treatment plan. Anticipatory guidance given. Patient agrees to follow-up as directed and is aware of reasons to seek care at the emergency department. Portions of this record may have been created with voice recognition software Level of Care: Express Care Visit Vital Signs Vital signs: Reviewed MDM - URI/Sore Throat MDM Narrative Medical decision making narrative: Discharge instructions reviewed with patient, as well as provided in writing per nursing staff. The instructions also include specific and strict return/GO TO THE ER as well as f/u information. All questions have been answered, and the patient deny any further questions with discharge and discharge plan. Differential diagnosis considered: [place] virus, strep pharyngitis, allergic rhinitis, upper respiratory tract infection, sinusitis, rhinosinusitis, nasopharyngitis. viral pharyngitis, otitis media, otitis externa, otitis effusion, foreign body, cerumen impaction, viral syndrome, and influenza.? Exam findings show no acute concerns or changes; patient is non-toxic appearing and is in no distress.? Patient is appropriate for outpatient treatment and follow-up.? Medical Records Attestation: I reviewed the patient's medical records. Discharge Plan Discharge Clinical Impression: Sinusitis Qualifiers: Sinusitis location: pansinusitis Chronicity: acute Recurrence: non-recurrent Qualified Code(s): J01.40 - Acute pansinusitis, unspecified Patient Disposition: Home, Self-Care Condition: Stable Instructions: Sinusitis (ED) Additional Instructions: Take antibiotic as prescribed. Take steroids in the morning with food. Other symptomatic treatments include: -Alternate Tylenol and Motrin per package directions for fever or pain. -Antihistamine medication such as Benadryl at night and Zyrtec/Claritin/Kacie during the day can help improve symptoms. -Use Flonase twice a day for 5 days then daily to help reduce the inflammation and dry up your sinuses. -You can also use Sudafed or Mucinex. Be sure to drink plenty of water with these medications at least 8 ounces with every dose and it is important to drink 8 to 10 glasses of water per day. Water is a natural decongestant -Eat and drink things that are easy to swallow, like tea or soup, or popsicles. -Oral rinses such as: Salt water gargles and/or may use topical anesthetic (eg. Chloraseptic spray) or lozenges to relieve dryness or throat pain). -Frequent hand washing or hand senior health physics technician is one of the best ways to prevent spread of infection. -Using a vaporizer or humidifier at night will also help thin secretions and help with coughing up phlegm. -Follow up with primary care provider in 3-5 days if condition is not improving - For new or worsening symptoms go directly to the nearest ER Patient Language: Tamazight Prescriptions: New prednisone 20 mg tablet 40 mg PO DAILY 5 Days Qty: 10 0RF fluticasone propionate [Flonase Allergy Relief] 50 mcg/actuation spray,suspension 1 spray intranasal DAILY Qty: 16 0RF Rx Instructions: administer into each nostril loratadine 10 mg tablet 10 mg PO DAILY Qty: 30 0RF amoxicillin-pot clavulanate 875-125 mg tablet 1 tablet PO Q12H 10 Days Qty: 20 0RF No Action metoprolol tartrate 25 mg tablet 25 mg PO DAILY PRN (Reason: rapid palpitations ) Qty: 30 0RF atorvastatin 20 mg Tablet 20 mg PO DAILY Qty: 30 0RF Follow-up/Referrals: Refugio Ibanez DO [Primary Care Provider] - 3 Days Time of Disposition: 09:22
[2024-02-09 08:45] VITALS: BP 134/84; PULSE 63; RESP 20; TEMP 35.8; O2SAT 98
== END 2024-02-09 09:30 | disposition home or self-care (01) ==
PROVIDERS: Emergency Provider Nurse Practitioner Family; PCP Internal Medicine
DX: J01.40 Acute pansinusitis, unspecified (principal); E78.5 Hyperlipidemia, unspecified
CPT/HCPCS: 99213; G0463